=== PATIENT | female | born 1995 | race Caucasian/White ===

== ENCOUNTER 2018-05-30 16:48 | Emergency (ER) | payer OTHER ==
[2018-05-30 17:07] VITALS: BP 137/86
--- NOTE | 2018-05-30 17:19 | UC ---
Respiratory Complaint HPI - HPI Summary HPI Summary: This is a 22-year-old female college student who had cold symptoms all last week and then the past couple of days she states she's had more chest congestion and occasional tight cough. She denies any asthma and is a nonsmoker. Her cough has been productive but only of clear sputum. - History of Current Complaint Chief Complaint: UCRespiratory Stated Complaint: COUGH Time Seen by Provider: 05/30/18 17:11 Hx Obtained From: Patient Hx Last Menstrual Period: 05/29/18 ?: No Onset/Duration: Gradual Onset - Cold symptoms last week Timing: Intermittent Episodes Severity Initially: Mild Severity Currently: Mild Pain Intensity: 0 Character: Cough: Productive - To cough up clear sputum Aggravating Factors: Nothing Alleviating Factors: Nothing Associated Signs And Symptoms: Positive: URI - URI last week - Allergies/Home Medications Allergies/Adverse Reactions: Allergies Allergy/AdvReac Type Severity Reaction Status Date / Time No Known Allergies Allergy Verified 05/30/18 17:04 Home Medications: Home Medications Norethindr/Eth Estradiol(Nf) [Lo Loestrin Fe (NF)] 1 tab PO DAILY 05/30/18 [ History Confirmed 05/30/18] PMH/Surg Hx/FS Hx/Imm Hx Previously Healthy: Yes - Surgical History Surgical History: None - Social History Occupation: Student Lives: Dormitory/Roommates Alcohol Use: None Substance Use Type: None Smoking Status (MU): Never Smoked Tobacco Review of Systems All Other Systems Reviewed And Are Negative: Yes Constitutional: Positive: Negative Skin: Positive: Negative Eyes: Positive: Negative ENT: Positive: Nasal Discharge - Upper respiratory Illness last week Respiratory: Positive: Cough - Productive cough of clear sputum, no difficulty breathing or shortness of breath. Cardiovascular: Positive: Negative Gastrointestinal: Positive: Negative Genitourinary: Positive: Negative Motor: Positive: Negative Neurovascular: Positive: Negative Musculoskeletal: Positive: Negative Neurological: Positive: Negative Physical Exam Triage Information Reviewed: Yes Appearance: Well-Appearing, No Pain Distress, Well-Nourished Vital Signs: Initial Vital Signs Temp 97.2 F 05/30/18 17:03 Pulse 90 05/30/18 17:03 Resp 14 05/30/18 17:03 BP 137/86 05/30/18 17:03 Pulse Ox 99 05/30/18 17:03 Vital Signs Reviewed: Yes Eye Exam: Normal ENT Exam: Normal Neck exam: Normal Respiratory: Positive: Lungs clear, Normal breath sounds, No respiratory distress, No accessory muscle use Cardiovascular Exam: Normal Abdominal Exam: Normal Bowel Sounds: Positive: Present Musculoskeletal Exam: Normal Neurological Exam: Normal Psychological Exam: Normal Skin Exam: Normal Respiratory Course/Dx - Course Course Of Treatment: Patient has been comfortable here. I believe this is a viral illness. - Differential Dx/Diagnosis Provider Diagnosis: URI (upper respiratory infection) Discharge - Sign-Out/Discharge Documenting (check all that apply): Patient Departure All imaging exams completed and their final reports reviewed: No Studies - Discharge Plan Condition: Good Disposition: HOME Patient Education Materials: Upper Respiratory Infection (DC) Referrals: No Primary Care Phys,NOPCP [Primary Care Provider] - SHILO MAIN [[employer], APPLICATION, OTHER] - Additional Instructions: Increase fluids. She may take [id number] cold medicine for her cough. Definite follow-up at the [facility] as needed or follow up with her primary care provider at home next week. - Billing Disposition and Condition Condition: GOOD Disposition: Home
--- NOTE | 2018-05-31 08:01 | UC ---
- EKG/XRAY/CT Xray Comments: read yesterday Course/Dx - Diagnoses Provider Diagnoses: URI (upper respiratory infection) Discharge - Sign-Out/Discharge Documenting (check all that apply): Post-Discharge Follow Up All imaging exams completed and their final reports reviewed: Yes - Discharge Plan Condition: Good Disposition: HOME Patient Education Materials: Upper Respiratory Infection (DC) Referrals: No Primary Care Phys,NOPCP [Primary Care Provider] - SHILO MAIN [[facility] [employer], APPLICATION, OTHER] - Additional Instructions: Increase fluids. She may take [id number] cold medicine for her cough. Definite follow-up at the [facility] as needed or follow up with her primary care provider at home next week. - Billing Disposition and Condition Condition: GOOD Disposition: Home
== END 2018-05-30 18:15 | disposition home or self-care (01) ==
LOC: UCCORT 16:48
DX: J06.9 Acute upper respiratory infection, unspecified (principal)
CPT/HCPCS: 71046; 99201; G0463